=== PATIENT | male | born 1965 | race African-American/Black ===

== ENCOUNTER 2019-09-30 06:16 | Inpatient (IN) | payer MEDICAID ==
[~2019-09-30] VITALS: Ht 182.9 cm; Wt 90.7 kg
[2019-09-30] MEDS ORDERED: DEXTROSE 50% WATER 50ML SYRINGE IV ONE (06:45)
[2019-09-30 07:20] LABS: EOSINOPHILS % 1.9 % (0.0-5.0); HEMATOCRIT. 41.2 % (42.0-52.0); HEMOGLOBIN. 13.2 g/dL (14.0-18.0); LYMPHOCYTES % 12.9 % (20.0-50.0); MEAN CORPUSCULAR HEMOGLOBIN 27.8 pg (28.0-32.0); MEAN CORPUSCULAR VOLUME 86.9 fL (80.0-94.0); MEAN PLATELET VOLUME 8.2 fl (7.4-10.4); MONOCYTES % 5.5 % (2.0-8.0); NEUTROPHILS % 78.7 % (40.0-76.0); PLATELET 273 x1000/uL (130-400); RED BLOOD CELL COUNT 4.75 mill/uL (4.7-6.1); RED CELL DISTRIBUTION WIDTH 18.1 % (11.6-14.6)
[2019-09-30 07:23] LABS: CHLORIDE 113 mEq/L (98-107)
[2019-09-30 07:27] LABS: ETHANOL BLOOD < 10 mg/dL
[2019-09-30 07:42] LABS: INR 1.1; PROTHROMBIN TIME 11.6 sec (9.6-11.0)
[2019-09-30] MEDS ORDERED: FOLIC ACID 1 MG, THIAMINE HCL 100 MG, MVI, ADULT NO.1 10 ML in DEXTROSE 5% WATER 1,000 ML IV ONE ×4 (08:45)
[2019-09-30 09:21] LABS: CLARITY URINE CLEAR (CLEAR); COLOR URINE YELLOW (YELLOW); KETONES URINE NEGATIVE (NEGATIVE); LEUKOCYTE ESTERASE URINE NEGATIVE (NEGATIVE); NITRITE URINE NEGATIVE (NEGATIVE); OCCULT BLOOD URINE TRACE (NEGATIVE); PROTEIN URINE 2+ (NEGATIVE); SPECIFIC GRAVITY URINE 1.019 (1.005-1.030); UROBILINOGEN URINE 0.2 E.U./dL (0.2-1.0)
[2019-09-30 09:27] LABS: *AMPHETAMINES SCREEN URINE NEGATIVE (NEGATIVE); *BARBITURATES SCREEN URINE NEGATIVE (NEGATIVE); *BENZODIAZEPINES SCREEN URINE NEGATIVE (NEGATIVE); *COCAINE SCREEN URINE PRESUMTIVE POSITIVE (NEGATIVE); METHADONE URINE SCREEN NEGATIVE (NEGATIVE)
[2019-09-30 09:28] LABS: CANNABINOID URINE SCREEN NEGATIVE (NEGATIVE); OPIATES URINE SCREEN NEGATIVE (NEGATIVE); PHENCYCLIDINE URINE SCREEN NEGATIVE (NEGATIVE)
[2019-09-30 10:09] LABS: BG CALCIUM 1.18 mmol/L (1.13-1.32); BG CARBOXYHEMOGLOBIN 0.7 % (0.5-1.5); BG CHLORIDE 111 mmol/L (98-106); BG DEOXYHEMOGLOBIN 5.9 % (0.0-5.0); BG FRACTION INSPIRED OXYGEN 21; BG HCO3 ACT 17.9 mmol/L (22.0-26.0); BG OXYGEN SATURATION 94.1 % (92.0-98.5); BG OXYHEMOGLOBIN 93.4 % (94.0-97.0); BG PCO2 34.2 mmHg (35.0-45.0); BG PH 7.336 (7.350-7.450); BG PO2 79.9 mmHg (75.0-100.0); BG POTASSIUM 4.49 mmol/L (3.50-5.30); BG SAMPLE SITE RIGHT RADIAL; BG SODIUM 134.1 mmol/L (135.0-148.0); BG TOTAL HEMOGLOBIN 13.1 g/dL (12.0-18.0); BG VENT MODE ROOM AIR
[2019-09-30] MEDS ORDERED: LIDOCAINE HCL/PF 1% 2ML VIAL ONE (11:50)
[2019-09-30] MEDS ORDERED: ACETAMINOPHEN 325MG TABLET PO PRN (12:45)
[2019-09-30] MEDS ORDERED: TRAZODONE HCL 50MG TABLET PO PRN (12:45)
[2019-09-30] MEDS ORDERED: HYDRALAZINE 20MG/ML VIAL IV PRN ×2 (12:45→14:45)
[2019-09-30] MEDS ORDERED: ONDANSETRON HCL 4MG/2ML INJ IV PRN (12:45)
[2019-09-30 14:15] VITALS: BP 129/89
[2019-09-30] MEDS: AMLODIPINE 5MG TABLET PO SCH ×2 (14:45→21:05)
[2019-09-30 16:30] VITALS: BP 147/100
[2019-09-30 20:00] VITALS: BP 164/100
[2019-09-30] MEDS: HEPARIN 5000 UNITS/ML VIAL SUBCUT SCH (21:04)
[2019-09-30 23:54] VITALS: BP 152/100
[2019-10-01 04:00] VITALS: BP 147/99
[2019-10-01] MEDS: AMLODIPINE 5MG TABLET PO SCH ×3 (06:05→22:20)
[2019-10-01 06:47] LABS: HEMATOCRIT. 32.9 % (42.0-52.0); HEMOGLOBIN. 10.7 g/dL (14.0-18.0); MEAN CORPUSCULAR VOLUME 86.5 fL (80.0-94.0); MEAN PLATELET VOLUME 8.1 fl (7.4-10.4); PLATELET 222 x1000/uL (130-400); RED CELL DISTRIBUTION WIDTH 17.5 % (11.6-14.6)
[2019-10-01 07:05] LABS: CHLORIDE 111 mEq/L (98-107)
[2019-10-01 08:00] VITALS: BP 155/89
[2019-10-01] MEDS: HEPARIN 5000 UNITS/ML VIAL SUBCUT SCH ×2 (08:35→22:20)
[2019-10-01] MEDS: AZITHROMYCIN 250 MG TABLET PO SCH (10:55)
[2019-10-01] MEDS ORDERED: LEVOFLOXACIN 250MG PREMIX 50 ML IV SCH (12:00)
[2019-10-01 12:30] VITALS: BP 150/95
[2019-10-01] MEDS: ALBUTEROL 6.7GM HFA INHALER ORI SCH ×2 (13:50→17:49)
[2019-10-01 14:35] LABS: PLATELET ESTIMATE NORMAL
[2019-10-01 16:00] VITALS: BP 158/99
[2019-10-01 20:00] VITALS: BP 146/95
[2019-10-01] MEDS: AZTREONAM 1 G in DEXTROSE 5% WATER 50 ML IV SCH (22:19)
[2019-10-01] MEDS: HYDRALAZINE HCL 50MG TABLET PO SCH (22:20)
[2019-10-02] VITALS: BP 146/97
[2019-10-02 04:00] VITALS: BP 149/100
[2019-10-02] MEDS: HYDRALAZINE HCL 50MG TABLET PO SCH ×3 (05:16→22:15)
[2019-10-02] MEDS: ALBUTEROL 6.7GM HFA INHALER ORI SCH ×5 (05:16→23:38)
[2019-10-02] MEDS: AMLODIPINE 5MG TABLET PO SCH (05:16)
[2019-10-02 06:50] LABS: CHLORIDE 109 mEq/L (98-107)
[2019-10-02 07:00] LABS: BASOPHILS % 2.1 % (0.0-2.0); EOSINOPHILS % 3.1 % (0.0-5.0); HEMATOCRIT. 33.4 % (42.0-52.0); HEMOGLOBIN. 10.5 g/dL (14.0-18.0); LYMPHOCYTES % 13.1 % (20.0-50.0); MEAN CORPUSCULAR VOLUME 86.2 fL (80.0-94.0); MONOCYTES % 6.8 % (2.0-8.0); NEUTROPHILS % 74.9 % (40.0-76.0); PLATELET 268 x1000/uL (130-400); RED BLOOD CELL COUNT 3.88 mill/uL (4.7-6.1); RED CELL DISTRIBUTION WIDTH 17.2 % (11.6-14.6)
[2019-10-02 07:25] LABS: HEPATITIS B SURFACE ANTIGEN NEGATIVE
[2019-10-02 07:55] LABS: HEPATITIS A AB IGM NEGATIVE (NEGATIVE)
[2019-10-02 08:00] VITALS: BP 136/102
[2019-10-02] MEDS: AZTREONAM 1 G in DEXTROSE 5% WATER 50 ML IV SCH ×2 (08:17→22:15)
[2019-10-02] MEDS: AZITHROMYCIN 250 MG TABLET PO SCH (08:45)
[2019-10-02] MEDS: HEPARIN 5000 UNITS/ML VIAL SUBCUT SCH ×2 (08:46→22:16)
[2019-10-02] MEDS: FLUTICASONE FUROATE 100 1 INH/CAP ORI SCH (11:42)
[2019-10-02 12:00] VITALS: BP 109/61
[2019-10-02] MEDS: DILTIAZEM HCL 120MG CAPSULE CD 24HR PO SCH ×2 (12:30→22:15)
[2019-10-02 16:00] VITALS: BP 111/72
[2019-10-02 20:00] VITALS: BP 150/101
[2019-10-02] MEDS: TRAZODONE HCL 50MG TABLET PO PRN (22:20)
[2019-10-03] VITALS: BP 149/89
[2019-10-03 04:00] VITALS: BP 137/101
[2019-10-03] MEDS: HYDRALAZINE HCL 50MG TABLET PO SCH ×3 (05:27→20:29)
[2019-10-03] MEDS: ALBUTEROL 6.7GM HFA INHALER ORI SCH ×3 (05:27→17:58)
[2019-10-03 06:41] LABS: BASOPHILS % 1.5 % (0.0-2.0); EOSINOPHILS % 5.1 % (0.0-5.0); HEMATOCRIT. 31.6 % (42.0-52.0); HEMOGLOBIN. 10.2 g/dL (14.0-18.0); LYMPHOCYTES % 14.9 % (20.0-50.0); MEAN CORPUSCULAR HEMOGLOBIN 27.6 pg (28.0-32.0); MEAN CORPUSCULAR VOLUME 85.1 fL (80.0-94.0); MEAN PLATELET VOLUME 7.5 fl (7.4-10.4); NEUTROPHILS % 66.5 % (40.0-76.0); PLATELET 255 x1000/uL (130-400); RED BLOOD CELL COUNT 3.71 mill/uL (4.7-6.1); RED CELL DISTRIBUTION WIDTH 17.4 % (11.6-14.6)
[2019-10-03 06:59] LABS: CHLORIDE 108 mEq/L (98-107)
[2019-10-03 07:12] LABS: HIV SCREEN 4G Non Reactive (Non Reactive)
[2019-10-03 08:30] VITALS: BP 121/88
[2019-10-03] MEDS: FLUTICASONE FUROATE 100 1 INH/CAP ORI SCH (08:40)
[2019-10-03] MEDS: AZITHROMYCIN 250 MG TABLET PO SCH (08:45)
[2019-10-03] MEDS: DILTIAZEM HCL 120MG CAPSULE CD 24HR PO SCH ×2 (08:45→20:28)
[2019-10-03] MEDS: AZTREONAM 1 G in DEXTROSE 5% WATER 50 ML IV SCH ×2 (08:45→20:28)
[2019-10-03] MEDS: HEPARIN 5000 UNITS/ML VIAL SUBCUT SCH ×2 (08:46→20:28)
[2019-10-03 11:34] VITALS: BP 127/68
[2019-10-03 16:21] VITALS: BP 119/72
[2019-10-03 20:00] VITALS: BP 143/103
[2019-10-04] VITALS (8 sets, daily range): BP systolic 117–152; BP diastolic 59–98
[2019-10-04] MEDS: ALBUTEROL 6.7GM HFA INHALER ORI SCH ×4 (00:40→19:00)
[2019-10-04] MEDS: TRAZODONE HCL 50MG TABLET PO PRN (04:19)
[2019-10-04] MEDS: HYDRALAZINE HCL 50MG TABLET PO SCH ×3 (06:00→21:17)
[2019-10-04] MEDS: HEPARIN 5000 UNITS/ML VIAL SUBCUT SCH ×2 (08:08→21:17)
[2019-10-04] MEDS: AZITHROMYCIN 250 MG TABLET PO SCH (08:09)
[2019-10-04] MEDS: FLUTICASONE FUROATE 100 1 INH/CAP ORI SCH (08:09)
[2019-10-04] MEDS: AZTREONAM 1 G in DEXTROSE 5% WATER 50 ML IV SCH ×2 (08:09→21:17)
[2019-10-04] MEDS: DILTIAZEM HCL 120MG CAPSULE CD 24HR PO SCH ×2 (08:51→21:17)
[2019-10-04 11:28] LABS: BASOPHILS % 1.4 % (0.0-2.0); EOSINOPHILS % 4.1 % (0.0-5.0); HEMATOCRIT. 31.3 % (42.0-52.0); HEMOGLOBIN. 9.9 g/dL (14.0-18.0); MEAN CORPUSCULAR HEMOGLOBIN 27.1 pg (28.0-32.0); MEAN CORPUSCULAR VOLUME 85.1 fL (80.0-94.0); MEAN PLATELET VOLUME 7.5 fl (7.4-10.4); MONOCYTES % 9.8 % (2.0-8.0); NEUTROPHILS % 71.7 % (40.0-76.0); PLATELET 253 x1000/uL (130-400); RED BLOOD CELL COUNT 3.68 mill/uL (4.7-6.1); RED CELL DISTRIBUTION WIDTH 17.5 % (11.6-14.6)
[2019-10-04 11:38] LABS: CHLORIDE 107 mEq/L (98-107)
[2019-10-04] MEDS: FUROSEMIDE 40MG/4ML VIAL IVP SCH (19:19)
[2019-10-05 00:09] VITALS: BP 125/84
[2019-10-05] MEDS: ALBUTEROL 6.7GM HFA INHALER ORI SCH ×5 (00:25→23:08)
[2019-10-05 04:00] VITALS: BP 116/78
[2019-10-05] MEDS: HYDRALAZINE HCL 50MG TABLET PO SCH ×3 (05:05→22:04)
[2019-10-05 07:48] LABS: BASOPHILS % 1.4 % (0.0-2.0); EOSINOPHILS % 4.8 % (0.0-5.0); HEMATOCRIT. 30.7 % (42.0-52.0); HEMOGLOBIN. 9.9 g/dL (14.0-18.0); LYMPHOCYTES % 15.5 % (20.0-50.0); MEAN CORPUSCULAR HEMOGLOBIN 27.4 pg (28.0-32.0); MEAN CORPUSCULAR VOLUME 85.1 fL (80.0-94.0); MEAN PLATELET VOLUME 7.9 fl (7.4-10.4); MONOCYTES % 10.2 % (2.0-8.0); NEUTROPHILS % 68.1 % (40.0-76.0); PLATELET 260 x1000/uL (130-400); RED BLOOD CELL COUNT 3.61 mill/uL (4.7-6.1); RED CELL DISTRIBUTION WIDTH 17.4 % (11.6-14.6)
[2019-10-05 07:50] LABS: CHLORIDE 106 mEq/L (98-107)
[2019-10-05 08:00] VITALS: BP 132/92
[2019-10-05] MEDS: DILTIAZEM HCL 120MG CAPSULE CD 24HR PO SCH ×2 (09:12→22:04)
[2019-10-05] MEDS: FUROSEMIDE 40MG/4ML VIAL IVP SCH (09:13)
[2019-10-05] MEDS: HEPARIN 5000 UNITS/ML VIAL SUBCUT SCH ×2 (09:13→22:04)
[2019-10-05] MEDS: AZITHROMYCIN 250 MG TABLET PO SCH (09:13)
[2019-10-05] MEDS: AZTREONAM 1 G in DEXTROSE 5% WATER 50 ML IV SCH ×2 (09:14→22:03)
[2019-10-05] MEDS: FLUTICASONE FUROATE 100 1 INH/CAP ORI SCH (09:20)
[2019-10-05 12:00] VITALS: BP 138/96
[2019-10-05 16:00] VITALS: BP 138/79
[2019-10-05 20:00] VITALS: BP 140/79
[2019-10-05] MEDS: TRAZODONE HCL 50MG TABLET PO PRN (22:13)
[2019-10-06] VITALS: BP 132/76
[2019-10-06 04:00] VITALS: BP 135/90
[2019-10-06] MEDS: HYDRALAZINE HCL 50MG TABLET PO SCH ×2 (05:52→15:09)
[2019-10-06] MEDS: ALBUTEROL 6.7GM HFA INHALER ORI SCH ×2 (05:52→12:14)
[2019-10-06 08:00] VITALS: BP 119/59
[2019-10-06] MEDS: AZITHROMYCIN 250 MG TABLET PO SCH (08:55)
[2019-10-06] MEDS: FUROSEMIDE 40MG/4ML VIAL IVP SCH (08:55)
[2019-10-06] MEDS: FLUTICASONE FUROATE 100 1 INH/CAP ORI SCH (08:55)
[2019-10-06] MEDS: DILTIAZEM HCL 120MG CAPSULE CD 24HR PO SCH ×2 (08:56→22:03)
[2019-10-06] MEDS: HEPARIN 5000 UNITS/ML VIAL SUBCUT SCH ×2 (08:56→22:02)
[2019-10-06] MEDS: AZTREONAM 1 G in DEXTROSE 5% WATER 50 ML IV SCH ×2 (08:56→22:01)
[2019-10-06 12:00] VITALS: BP 122/71
[2019-10-06 16:00] VITALS: BP 119/68
[2019-10-06 20:00] VITALS: BP 149/84
[2019-10-07] VITALS: BP 131/87
[2019-10-07 04:00] VITALS: BP 132/92
[2019-10-07] MEDS: HYDRALAZINE HCL 50MG TABLET PO SCH ×4 (05:46→23:13)
[2019-10-07] MEDS: ALBUTEROL 6.7GM HFA INHALER ORI SCH ×5 (05:47→23:13)
[2019-10-07 08:00] VITALS: BP 142/86
[2019-10-07] MEDS: FLUTICASONE FUROATE 100 1 INH/CAP ORI SCH (09:33)
[2019-10-07] MEDS: FUROSEMIDE 40MG/4ML VIAL IVP SCH (09:33)
[2019-10-07] MEDS: HEPARIN 5000 UNITS/ML VIAL SUBCUT SCH ×2 (09:34→20:04)
[2019-10-07] MEDS: DILTIAZEM HCL 120MG CAPSULE CD 24HR PO SCH ×2 (09:34→20:04)
[2019-10-07 12:00] VITALS: BP 115/70
[2019-10-07 16:00] VITALS: BP 116/75
[2019-10-07 20:00] VITALS: BP 138/87
[2019-10-07] MEDS: TRAZODONE HCL 50MG TABLET PO PRN (23:12)
[2019-10-08] VITALS: BP 99/78
[2019-10-08 04:00] VITALS: BP 115/83
[2019-10-08] MEDS: ALBUTEROL 6.7GM HFA INHALER ORI SCH ×3 (06:30→17:50)
[2019-10-08] MEDS: HYDRALAZINE HCL 50MG TABLET PO SCH ×3 (06:30→21:45)
[2019-10-08 08:00] VITALS: BP 118/88
[2019-10-08] MEDS: FLUTICASONE FUROATE 100 1 INH/CAP ORI SCH (09:08)
[2019-10-08] MEDS: FUROSEMIDE 40MG/4ML VIAL IVP SCH (09:08)
[2019-10-08] MEDS: DILTIAZEM HCL 120MG CAPSULE CD 24HR PO SCH ×2 (09:08→21:37)
[2019-10-08] MEDS: HEPARIN 5000 UNITS/ML VIAL SUBCUT SCH ×2 (09:09→21:38)
[2019-10-08 12:00] VITALS: BP 108/60
[2019-10-08 16:00] VITALS: BP 138/78
[2019-10-08 20:00] VITALS: BP 144/95
[2019-10-09] VITALS: BP 145/93
[2019-10-09] MEDS: ALBUTEROL 6.7GM HFA INHALER ORI SCH (00:08)
[2019-10-09 08:00] VITALS: BP 141/90
[2019-10-09] MEDS: FLUTICASONE FUROATE 100 1 INH/CAP ORI SCH (10:47)
[2019-10-09] MEDS: FUROSEMIDE 40MG/4ML VIAL IVP SCH (10:47)
[2019-10-09] MEDS: DILTIAZEM HCL 120MG CAPSULE CD 24HR PO SCH (10:47)
[2019-10-09] MEDS: HEPARIN 5000 UNITS/ML VIAL SUBCUT SCH (10:48)
[2019-10-09 12:00] VITALS: BP 98/82
[2019-10-09 14:46] VITALS: BP 141/90
[2019-10-09 15:59] LABS: BASOPHILS % 1.1 % (0.0-2.0); EOSINOPHILS % 4.6 % (0.0-5.0); HEMATOCRIT. 31.4 % (42.0-52.0); MEAN CORPUSCULAR HEMOGLOBIN 27.2 pg (28.0-32.0); MEAN CORPUSCULAR VOLUME 85.1 fL (80.0-94.0); MEAN PLATELET VOLUME 8.1 fl (7.4-10.4); MONOCYTES % 13.5 % (2.0-8.0); NEUTROPHILS % 68.8 % (40.0-76.0); PLATELET 232 x1000/uL (130-400); RED BLOOD CELL COUNT 3.69 mill/uL (4.7-6.1); RED CELL DISTRIBUTION WIDTH 17.3 % (11.6-14.6)
[2019-10-09 16:15] LABS: CHLORIDE 103 mEq/L (98-107)
== END 2019-10-09 16:35 | DRG 720 ==
LOC: ER 06:16 → EDBD 10:48 → 7WST 10:48 → EDBEDREQ 10:52 → EDBEDREQTM 10:52 → ENRESERV 12:49
PROVIDERS: ADMIT Family Medicine Adult Medicine; ATTEND Family Medicine Adult Medicine
DX: A41.89 Other specified sepsis (principal); U07.1 COVID-19; I21.4 Non-ST elevation (NSTEMI) myocardial infarction; J96.00 Acute respiratory failure, unspecified whether with hypoxia or hypercapnia; G92 Toxic encephalopathy; L03.115 Cellulitis of right lower limb; I27.20 Pulmonary hypertension, unspecified; E11.649 Type 2 diabetes mellitus with hypoglycemia without coma; D64.9 Anemia, unspecified; F14.10 Cocaine abuse, uncomplicated; J12.89 Other viral pneumonia; J20.8 Acute bronchitis due to other specified organisms; J68.0 Bronchitis and pneumonitis due to chemicals, gases, fumes and vapors; I34.0 Nonrheumatic mitral (valve) insufficiency; I42.9 Cardiomyopathy, unspecified; N17.9 Acute kidney failure, unspecified; Z99.3 Dependence on wheelchair; R53.2 Functional quadriplegia; I42.8 Other cardiomyopathies; Z59.0 Homelessness; Z88.0 Allergy status to penicillin; R00.0 Tachycardia, unspecified; I13.0 Hypertensive heart and chronic kidney disease with heart failure and stage 1 through stage 4 chronic kidney disease, or unspecified chronic kidney disease; E11.22 Type 2 diabetes mellitus with diabetic chronic kidney disease; N18.9 Chronic kidney disease, unspecified; I50.23 Acute on chronic systolic (congestive) heart failure; I87.8 Other specified disorders of veins; L97.919 Non-pressure chronic ulcer of unspecified part of right lower leg with unspecified severity
CPT/HCPCS: 36415; 36600; 71045; 80051; 80053; 80305; 80307; 80320; 80329; 81003; 82140; 82375; 82805; 82962; 83735; 83880; 84145; 84484; 85025; 86705; 86709; 86803; 86850; 86900; 87340; 87389; 93005; 96365; 99291; J0360; J1644; J1940; J1956; J3411; J3490; J7060; J7070; G0480; U0003-CS